=== PATIENT | male | born 1985 | race Caucasian/White ===

== ENCOUNTER → 2016-05-25 | Outpatient (REF) ==
--- NOTE | 2016-05-25 14:32 | REP ---
Clinical: Pain . Comparison: None . Technique: PA and lateral. Findings: The mediastinum and cardiac silhouette are normal. The lung loving are clear and without acute consolidation, effusion, or pneumothorax. The skeletal structures are intact and normal. Impression: 1. No acute cardiopulmonary process. Signed by Salvador Vanessa MD 05/25/2016 02:24 P
--- NOTE | 2016-05-25 14:36 | REP ---
LUMBAR SPINE, SIX VIEWS: HISTORY: Degenerative disc disease. There is no acute fracture or subluxation. The intervertebral discs are normal in height. The facet joints are normal in appearance. IMPRESSION: There is no acute fracture or subluxation. Signed by Cole Patrick MD 05/25/2016 02:39 P
--- NOTE | 2016-05-25 14:37 | REP ---
NASAL BONES, THREE VIEWS: HISTORY: Disability. Mucosal thickening is present in the left maxillary sinus. The remaining sinuses are clear. There is no fracture or bone lesion. IMPRESSION: Left maxillary sinus mucosal thickening. Signed by Cole Patrick MD 05/25/2016 02:39 P
--- NOTE | 2016-05-25 14:42 | REP ---
Clinical: Pain. Technique: AP and lateral views of the right and left tibia / fibula. Findings: Joint spaces, osseous structures, and surrounding soft tissues are normal and symmetric bilaterally. No acute fracture dislocation. Impression: Normal bilateral tibia / fibula radiographs. Signed by Salvador Vanessa MD 05/25/2016 02:33 P
--- NOTE | 2016-05-25 14:52 | REP ---
THORACIC SPINE, FIVE VIEWS: HISTORY: Degenerative disc disease. The lower thoracic spine is not seen in the lateral radiograph. There is no acute fracture or subluxation. The intervertebral discs are normal in height. IMPRESSION: There is no acute fracture or subluxation. Signed by Cole Patrick MD 05/25/2016 02:53 P
== END ==
LOC: M SMT 12:55
PROVIDERS: ATTEND Internal Medicine
DX: Z02.1 Encounter for pre-employment examination (principal)